=== PATIENT | female | born 1975 | race Caucasian/White ===

== ENCOUNTER 2018-01-01 23:25 | Emergency (ER) | payer BC, OTHER ==
[~2018-01-01] VITALS: Ht 154.9 cm; Wt 84.5 kg
[~2018-01-01 23:25] MED LIST: ABILIFY20 MG PO; AMRIX15 MG PO; BUSPAR5 MG PO; DURAGESIC25 MCG TD; HYDROCODON-ACE1 EAC7 PO; LORTAB 7.5/51 TABLET PO; PAXIL20 MG PO; PRISTIQ100 MG PO; RISPERDAL2 MG PO; RISPERIDONE0.5 MG PO; SAPHRIS10 MG SL; SERTRALINE HCL100 MG PO; TOPIRAGEN100 MG PO; TOPIRAMATE100 MG PO; TRAMADOL HCL50 MG PO; TRILAFON4 MG PO; WELLBUTRIN XL300 MG PO
[2018-01-02 00:04] VITALS: BP 145/84
== END 2018-01-02 00:04 | disposition home or self-care (01) ==
LOC: EME 23:25
DX: M79.7 Fibromyalgia (principal); Z76.0 Encounter for issue of repeat prescription; G89.4 Chronic pain syndrome; Z88.5 Allergy status to narcotic agent
CPT/HCPCS: 99281; 99283